=== PATIENT | female | born 1965 | race Caucasian/White ===

== ENCOUNTER 2017-05-30 20:41 | Emergency (ER) | payer OTHER ==
[~2017-05-30] VITALS: Ht 167.6 cm; Wt 54.4 kg
[2017-05-30] MEDS ORDERED: HYDR25CA PO (21:02)
[2017-05-30] MEDS ORDERED: ALBU18HF2 IH (21:02)
[2017-05-30] MEDS ORDERED: PREG150C PO (21:02)
[2017-05-30] MEDS ORDERED: BUPR300T52 PO (21:02)
[2017-05-30] MEDS ORDERED: TOPI25TA PO (21:02)
[2017-05-30] MEDS ORDERED: BUTA1CAP17 PO (21:02)
[2017-05-30] MEDS ORDERED: OXYC40TA50 PO (21:02)
[2017-05-30] MEDS ORDERED: IV LACTATED RINGERS SOLUTION 1,000 ML IV ONE (21:04)
[2017-05-30] MEDS ORDERED: LORAZEPAM 2 MG/1 ML VIAL IV ONE (21:15)
[2017-05-30] MEDS ORDERED: OXYCODONE/APAP 5-325 MG TABLET PO ONE ×2 (21:15→22:45)
[2017-05-30] MEDS ORDERED: ONDANSETRON 4 MG/2 ML VIAL IV ONE (21:15)
--- NOTE | 2017-05-30 21:15 | NUR ---
Pt BIB [facility], reports pt had n/v/d x 3days. PT c/o n/v/explosive diarrhea for 3 days, and muscle cramping all over her body. Pt states she is withdrawing opiate pain pills. Also c/o pain in lower back, both knees and both feet. Pt denies CP, SOB, dizziness, no other complaints, minor distress noted.
[2017-05-30 21:28] LABS: BASOPHILS # (AUTO) 0.1 K/uL (0.0-8.0); BASOPHILS % (AUTO) 1.6 % (0.0-2.0); EOSINOPHILS # (AUTO) 0.1 K/uL (0.0-0.7); EOSINOPHILS % (AUTO) 1.2 % (0.0-7.0); HEMATOCRIT 39.1 % (37-47); HEMOGLOBIN 13.2 G/DL (12.0-16.0); LYMPHOCYTES # (AUTO) 1.8 K/UL (0.8-4.8); LYMPHOCYTES % (AUTO) 26.7 % (20.5-51.5); MEAN CORPUSCULAR HEMOGLOBIN 29.8 UUG (27.0-31.0); MEAN CORPUSCULAR HGB CONC 34 g/dL (32.0-37.0); MEAN CORPUSCULAR VOLUME 88.3 FL (81.0-99.0); MONOCYTES # (AUTO) 0.3 K/UL (0.1-1.30); MONOCYTES % (AUTO) 4.9 % (0.0-11.0); NEUTROPHILS # (AUTO) 4.3 K/UL (1.8-8.9); NEUTROPHILS % (AUTO) 65.6 % (38.5-71.5); PLATELET COUNT (AUTO) 341 K/UL (150-450); RED BLOOD CELL COUNT(AUTO) 4.43 MIL/UL (4.2-5.4); WHITE BLOOD COUNT (AUTO) 6.6 K/UL (4.0-11.2)
[2017-05-30 21:31] LABS: CREATININE 0.8 mg/dL (0.6-1.3); POTASSIUM 3.2 mmol/L (3.5-5.1)
[2017-05-30] MEDS ORDERED: ONDANSETRON 4 MG/2 ML VIAL ONE (21:38)
[2017-05-30] MEDS ORDERED: OXYCODONE/APAP 5-325 MG TABLET ONE ×2 (21:38→23:28)
[2017-05-30] MEDS ORDERED: LORAZEPAM 2 MG/1 ML VIAL ONE (21:39)
[2017-05-30] MEDS ORDERED: POTASSIUM CHLORIDE 20 MEQ TAB.PRT.SR PO ONE (22:30)
[2017-05-30] MEDS ORDERED: CARISOPRODOL 350 MG TABLET PO ONE (22:45)
[2017-05-30] MEDS ORDERED: CARISOPRODOL 350 MG TABLET ONE (23:28)
[2017-05-30] MEDS ORDERED: POTASSIUM CHLORIDE 20 MEQ TAB.PRT.SR ONE (23:28)
--- NOTE | 2017-05-30 23:30 | NUR ---
Pt pain is down to 6/10.
--- NOTE | 2017-05-30 23:30 | NUR ---
Gave pt RX and d/c instructions, verbalized understanding.
--- NOTE | 2017-05-30 23:30 | NUR ---
Removed IV intact, site okay, bandaged.
== END 2017-05-30 23:40 | disposition home or self-care (01) ==
LOC: ER 20:44
DX: G89.29 Other chronic pain (principal); R11.2 Nausea with vomiting, unspecified; R19.7 Diarrhea, unspecified; Z88.0 Allergy status to penicillin; Z79.82 Long term (current) use of aspirin
CPT/HCPCS: 36415; 85025; A4663; J2060; J2405; J7120

== ENCOUNTER 2017-06-01 18:49 | Emergency (ER) | payer OTHER ==
[~2017-06-01] VITALS: Ht 177.8 cm; Wt 63.5 kg
[~2017-06-01 18:49] MED LIST: ALBU18HF2 IH; BUPR300T52 PO; BUTA1CAP17 PO; HYDR25CA PO; OXYC40TA50 PO; PREG150C PO; TOPI25TA PO
[2017-06-01] MEDS ORDERED: HYDROMORPHONE HCL 2 MG TABLET PO ONE (19:15)
[2017-06-01] MEDS ORDERED: HYDROMORPHONE HCL 2 MG TABLET ONE (19:44)
--- NOTE | 2017-06-01 20:20 | NUR ---
Patient discharged to home in stable conditon. Written and verbal after care instructions given. Patient verbalizes understanding of instructions.
== END 2017-06-01 20:21 | disposition home or self-care (01) ==
LOC: ER 18:53
DX: G89.29 Other chronic pain (principal); F32.9 Major depressive disorder, single episode, unspecified; Z79.82 Long term (current) use of aspirin; Z88.0 Allergy status to penicillin
CPT/HCPCS: 99283; A4663

== ENCOUNTER 2017-06-10 23:39 | Emergency (ER) | payer BC, OTHER ==
[~2017-06-10] VITALS: Ht 167.6 cm; Wt 49.9 kg
[2017-06-11] MEDS ORDERED: METOCLOPRAMIDE HCL 10 MG/2 ML VIAL IM ONE (00:45)
[2017-06-11] MEDS ORDERED: diphenhydrAMINE 50 MG/1 ML VIAL IM ONE (00:45)
[2017-06-11] MEDS ORDERED: METOCLOPRAMIDE HCL 10 MG/2 ML VIAL ONE (01:06)
[2017-06-11] MEDS ORDERED: diphenhydrAMINE 50 MG/1 ML VIAL ONE (01:06)
--- NOTE | 2017-06-11 01:20 | NUR ---
PATIENT STATING REGLAN AND BENADRYL NOT EFFECTIVE FOR MIGRAINE. DR BANEGAS AWARE
[2017-06-11] MEDS ORDERED: KETOROLAC TROMETHAMINE 60 MG INJ IM ONE ×2 (01:30→01:43)
--- NOTE | 2017-06-11 03:40 | NUR ---
PATIENT SLEEPING ON GURNY WITH NO DISTRESS NOTED
--- NOTE | 2017-06-11 05:50 | NUR ---
Patient discharged to home in stable conditon. Written and verbal after care instructions given. Patient verbalizes understanding of instructions. Walked out of ER with no distress noted
[2017-06-11 05:51] VITALS: BP 118/85
== END 2017-06-11 05:51 | disposition home or self-care (01) ==
LOC: ER 23:42
DX: G89.29 Other chronic pain (principal); R51 Headache; F32.9 Major depressive disorder, single episode, unspecified; Z79.82 Long term (current) use of aspirin; Z88.0 Allergy status to penicillin
CPT/HCPCS: A4663; J1200; J1885; J2765

== ENCOUNTER 2017-06-16 13:32 | Emergency (ER) | payer OTHER ==
[~2017-06-16] VITALS: Ht 167.6 cm; Wt 49.9 kg
--- NOTE | 2017-06-16 14:30 | NUR ---
Patient discharged to home in stable conditon. Written and verbal after care instructions given to patient. Patient verbalizes understanding of instructions. Patient left ER with steady gait, NAD.
== END 2017-06-16 14:32 | disposition home or self-care (01) ==
LOC: ER 13:32
DX: G89.29 Other chronic pain (principal); M54.9 Dorsalgia, unspecified; M25.561 Pain in right knee; M25.562 Pain in left knee; F32.9 Major depressive disorder, single episode, unspecified; Z79.82 Long term (current) use of aspirin; Z88.0 Allergy status to penicillin
CPT/HCPCS: A4663

== ENCOUNTER 2017-06-21 19:44 | Emergency (ER) | payer OTHER ==
[~2017-06-21] VITALS: Ht 167.6 cm; Wt 56.7 kg
--- NOTE | 2017-06-21 19:54 | NUR ---
CALLED FOR PT NO ANSWER
--- NOTE | 2017-06-21 20:05 | NUR ---
pt ambulates uneventfully from waiting room to ER treatment room without limp - cane in hand - sitting on gurney without grimace - expressing verbally " pain level at 9 out of 10 ". 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
[2017-06-21] MEDS ORDERED: OXYCODONE/APAP 5-325 MG TABLET PO ONE (20:15)
--- NOTE | 2017-06-21 20:18 | NUR ---
pt voices displeasure of not receiving Perscriptions for narcotic and of strength of percocet provided - pt recently seen in this ER and retains multiple medications fron that visit - instructed at that time to follow up with her primary MD for chronic condition - low back pain - pt again provided with discharge instructions to follow up with her primary MD
--- NOTE | 2017-06-21 20:20 | NUR ---
Patient discharged to home in stable conditon. Written and verbal after care instructions given. Patient verbalizes understanding of instructions.
[2017-06-21 20:41] VITALS: BP 124/87
== END 2017-06-21 21:00 | disposition home or self-care (01) ==
LOC: ER 19:49
DX: S79.911A Unspecified injury of right hip, initial encounter (principal); G89.29 Other chronic pain; M54.5 Low back pain; Z79.82 Long term (current) use of aspirin; Z88.0 Allergy status to penicillin; X58.XXXA Exposure to other specified factors, initial encounter; Y93.89 Activity, other specified; Y92.89 Other specified places as the place of occurrence of the external cause; Y99.8 Other external cause status
CPT/HCPCS: A4663